=== PATIENT | male | born 1990 | race Caucasian/White ===

== ENCOUNTER 2017-10-28 13:02 | Emergency (ER) | payer OTHER ==
[~2017-10-28] VITALS: Ht 170.2 cm; Wt 83.9 kg
[2017-10-28 14:30] LABS: ABSOLUTE BASOPHIL COUNT 0 /CUMM (0.0-0.2); ABSOLUTE EOSINOPHIL COUNT 0.2 /CUMM (0.0-0.7); ABSOLUTE GRANULOCYTE CT 5.6 /CUMM (1.4-6.5); ABSOLUTE LYMPH COUNT 1.7 /CUMM (1.2-3.4); ABSOLUTE MONOCYTE COUNT 0.6 /CUMM (0.10-0.60); BASOPHIL % 0.3 % (0.0-2.0); EOSINOPHIL % 2.7 % (0-5); GRANULOCYTE % 68.9 % (42.2-75.2); MEAN CORPUSCULAR HGB 28.6 PG (27.0-31.0); MEAN CORPUSCULAR HGB CONC 33.7 G/DL (33.0-37.0); MEAN CORPUSCULAR VOLUME 84.8 FL (80.0-94.0); MEAN PLATELET VOLUME 8.1 FL (7.4-10.4); PLATELET COUNT 257 /CUMM (130-400); RBC DISTRIBUTION WIDTH 12.8 % (11.5-14.5); RED BLOOD CELL CT 5.54 /CUMM (4.70-6.10); WHITE BLOOD CELL COUNT 8.2 /CUMM (4.8-10.8)
--- NOTE | 2017-10-28 14:56 | ED GENERAL ADULT ---
History of Present Illness General Chief Complaint: General Adult Stated Complaint: ANXIOUS; DEPRESSION; -SI/-HI Source: patient Exam Limitations: no limitations Vital Signs & Intake/Output Vital Signs & Intake/Output Vital Signs Date Time Temp Pulse Resp B/P B/P Pulse O2 O2 Flow FiO2 Mean Ox Delivery Rate 10/28 1307 98.3 100 16 161/88 98 Room Air Allergies Coded Allergies: No Known Allergies (10/28/17) Reconcile Medications No Known Home Medications Triage Note: PT STATES THAT HE HAS BEEN HAVING ANXIETY AND DEPRESSION PROBLEMS SINCE MARCH, DENIES SI/HI/DRUGS OR ETOH, HIS JOB IS AWARE THAT HE HAS BEEN HAVING PROBLEMS AND THEY TRIED TO HELP HIM TO GET INTO PSYCHIATRIST TO TALK WITH BUT EVERYONE IS BOOKED UP , HIS HR DEPARTMENT RECOMENDED HE COME TO ER Triage Nurses Notes Reviewed? yes Onset: Gradual Duration: months Timing: constant HPI: 27-year-old otherwise healthy male presenting for a evaluation of his anxiety and depression. Patient reports that he received a job promotion a few months ago, which has been very stressful since him. Since then he has had new onset of anxiety and depression. Has no previous history of anxiety or depression. Has never had psychiatric evaluation in the past. Has tried to obtain an outpatient psychiatrist for evaluation but states everyone he has called is either not accepting new patients, or is booking new appointments many months out. Denies SI/HI. Presents to the emergency department for help finding an outpatient psychiatrist. Denies EtOH or drug use. Denies pain or trauma. Past History Travel History Traveled to [place] past 21 day No Medical History Any Pertinent Medical History? see below for history Neurological: NONE EENT: NONE Cardiovascular: NONE Respiratory: NONE Gastrointestinal: NONE Hepatic: NONE Renal: NONE Musculoskeletal: NONE Psychiatric: anxiety, depression Endocrine: NONE Blood Disorders: NONE Cancer(s): NONE DIRECTOR OF SPECIAL SERVICES/Reproductive: NONE Surgical History Surgical History: non-contributory Psychosocial History What is your primary language Pashto Tobacco Use: Never used ETOH Use: denies use Illicit Drug Use: denies illicit drug use Family History Hx Contributory? No Review of Systems Review of Systems Constitutional: Reports: no symptoms. EENTM: Reports: no symptoms. Respiratory: Reports: no symptoms. Cardiovascular: Reports: no symptoms. GI: Reports: no symptoms. Genitourinary: Reports: no symptoms. Musculoskeletal: Reports: no symptoms. Skin: Reports: no symptoms. Neurological/Psychological: Reports: see HPI. Hematologic/Endocrine: Reports: no symptoms. Immunologic/Allergic: Reports: no symptoms. All Other Systems: Reviewed and Negative Physical Exam Physical Exam General Appearance: well developed/nourished, no apparent distress, alert, awake , comfortable Comments: Gen.: Well-nourished, well-developed, no acute distress. Head: Normocephalic, atraumatic. Eyes: Normal inspection bilaterally Ears: Normal inspection bilaterally Nose: Normal inspection Neck: Normal inspection Lungs: clear to auscultation bilaterally, normnal breath sounds Heart: regular rate and rhythm Abdomen: soft and non-tender Extremities: Normal inspection Neurologic: alert and oriented x3, steady gait Skin: warm and dry Psychiatric: Normal mood and affect, no apparent delusions or hallucinations, behavior appropriate Core Measures ACS in differential dx? No CVA/TIA Diagnosis: No Sepsis Present: No Sepsis Focused Exam Completed? No Progress Differential Diagnoses I considered the following diagnoses in my evaluation of the patient: [Anxiety versus depression, low concern for SI versus HI versus intoxication versus trauma] Plan of Care: Orders Procedure Date/time Status URINE DRUGS OF ABUSE 10/28 1324 Complete ETHANOL 10/28 1324 Complete COMPREHENSIVE METABOLIC PANEL 10/28 1324 Complete CBC WITHOUT DIFFERENTIAL 10/28 1324 Complete Laboratory Tests 10/28/17 1418: Anion Gap 11, Estimated GFR > 60, BUN/Creatinine Ratio 18.9, Glucose 117 H, Calcium 9.8, Total Bilirubin 0.3, AST 24, ALT 43, Alkaline Phosphatase 64, Total Protein 8.0, Albumin 4.9, Globulin 3.1, Albumin/Globulin Ratio 1.6, CBC w Diff NO MAN DIFF REQ, RBC 5.54, MCV 84.8, MCH 28.6, MCHC 33.7, RDW 12.8, MPV 8.1, Gran % 68.9, Lymphocytes % 21.2, Monocytes % 6.9, Eosinophils % 2.7, Basophils % 0.3, Absolute Granulocytes 5.6, Absolute Lymphocytes 1.7, Absolute Monocytes 0.6 , Absolute Eosinophils 0.2, Absolute Basophils 0, Serum Alcohol < 10.0 10/28/17 1400: Urine Opiates Screen < 100, Methadone Screen < 40, Barbiturate Screen < 60, Ur Phencyclidine Scrn < 6.00, Amphetamines Screen < 100, U Benzodiazepines Scrn < 85, Urine Cocaine Screen < 50, Urine Cannabis Screen < 5.00 On exam patient is very appropriate with normal behavior, denies SI/HI. Discussed with crisis and patient was given contact information to follow-up with [facility] for reevaluation of his anxiety and depression. Per crisis the patient should be able to be seen next week. Patient is amenable to this plan. Cleared for discharge and given strict return precautions. Initial ED EKG: none Departure Departure Disposition: HOME OR SELF CARE Condition: Stable Clinical Impression Primary Impression: Anxiety Secondary Impressions: Depression Referrals: Patient Has No Primary Care Dr (PCP/Family) Additional Instructions: Follow-up with the [facility] for reevaluation. Return to the emergency department for any new or worsening symptoms. Departure Forms: Customer Survey General Discharge Information Prescriptions: Current Visit Scripts No Known Home Medications Critical Care Note Critical Care Note Critical Care Time: non-applicable
--- NOTE | 2017-10-28 15:09 | ED PSY CRISIS COLLATERAL NOTE ---
Collateral Note Collateral Note Family/Inform/Tye Contacts: Crisis assisted SERVANDO Bauman in connecting pt to outpatient medication provider. Pt has been accepted at [facility] and will notify pt within 72 hrs of his appointment which will be next week.
[2017-10-28 15:10] VITALS: BP 140/80
== END 2017-10-28 15:10 ==
LOC: ERH 13:02
PROVIDERS: Physician Assistant
DX: F41.9 Anxiety disorder, unspecified (principal); F32.9 Major depressive disorder, single episode, unspecified
CPT/HCPCS: 80307; G0480